=== PATIENT | female | born 1965 | race Caucasian/White ===

== ENCOUNTER → 2023-05-18 | Day surgery (SDC) | payer BC, OTHER | END | disposition home or self-care (01) | LOC: JRADUS-SUR 09:28 | PROVIDERS: ATTEND Obstetrics & Gynecology | PROC: 0H9V3ZX Drainage of Bilateral Breast, Percutaneous Approach, Diagnostic (ICD-10-PCS; principal; 2023-05-18) | DX: C50.912 Malignant neoplasm of unspecified site of left female breast (principal); N60.91 Unspecified benign mammary dysplasia of right breast | CPT/HCPCS: 19083; 19084; 77066-TC; 87899; 88305-TC; 88341-TC; 88342-TC; A4648 ==